=== PATIENT | female | born 1990 | race Caucasian/White ===

== ENCOUNTER 2019-06-16 14:50 | Day surgery (SDC) | payer OTHER ==
[~2019-06-16] VITALS: Ht 160 cm; Wt 83.6 kg
[2019-06-16] VITALS (7 sets, daily range): BP systolic 110–135; BP diastolic 63–85; PULSE 53–90; TEMP 98.7–98.8
[2019-06-16] MEDS ORDERED: ZYRTEC 10MG10 MG PO (16:02)
[2019-06-16] MEDS ORDERED: VITAMIN D3400 I1 PO (16:04)
[2019-06-16] MEDS ORDERED: ROXICODONE 55 MG/TAB PO (16:05)
[2019-06-16] MEDS ORDERED: FLOMAX 0.40.4 MG/CAP PO (16:05)
[2019-06-16] MEDS ORDERED: ZOFRAN ODT4 MG PO (16:06)
--- NOTE | 2019-06-16 19:30 | NUR ---
Pt. arrived to the floor from PACU. Pt. is A&OX3, assessment complete. IV to rt. hand patent, IV fluids infusing per orders. Pt. has ambulated to the bathroom and urinated. Pt. reports pain at a 4 on pain scale at this time. Pt. denies further needs. Call light within reach.
--- NOTE | 2019-06-16 20:00 | NUR ---
Pt. tolerated eating. Pt. rates pain at a 6 on pain scale, will give pain meds per orders.
--- NOTE | 2019-06-16 21:00 | NUR ---
Pt. has met discharge criteria. INT to rt. hand discontinued. Pt. given discharge paper work. Education, health summary, discharge instructions, home meds, and new scripts reviewed. Pt. denies questions. Pt. ecorted out by JENISE Johnson.
== END 2019-06-16 21:00 | disposition home or self-care (01) ==
LOC: SDCO 14:50 → SURG 19:30 → SDCO 21:00
DX: N13.2 Hydronephrosis with renal and ureteral calculous obstruction (principal); F17.210 Nicotine dependence, cigarettes, uncomplicated; G43.909 Migraine, unspecified, not intractable, without status migrainosus; F41.9 Anxiety disorder, unspecified; Z79.899 Other long term (current) drug therapy; F32.9 Major depressive disorder, single episode, unspecified; Z91.040 Latex allergy status; F42.9 Obsessive-compulsive disorder, unspecified; Z80.1 Family history of malignant neoplasm of trachea, bronchus and lung
CPT/HCPCS: OP; C1769; C1894; C2617; J0690; J1100; J1885; J2405; J2704; J3010; J7120; Q9967